=== PATIENT | male | born 1940 | race Caucasian/White ===

== ENCOUNTER → 2018-11-13 11:26 | Outpatient (CLI) | payer MEDICARE, SELFPAY ==
--- NOTE | 2018-11-13 | DI.CT.S_ITS ---
PROCEDURE: CT ABDOMEN PELVIS WO/W CON INDICATIONS: Gross hematuria TECHNIQUE: Optional 5 mm thick noncontrast images acquired from the diaphragm to the symphysis pubis. After the administration of intravenous contrast, 5 mm thick images acquired from the diaphragm to the symphysis pubis after a 10-minute delay. 2 mm thick coronal and sagittal reformats were then performed of the kidneys and ureters. For radiation dose reduction, the following was used: automated exposure control, adjustment of mA and/or kV according to patient size. COMPARISON: None. FINDINGS: Image quality: Excellent. Lung bases: Lung bases are clear. Heart size is normal. Small hiatal hernia. Urinary system: Both kidneys are normal in size, without hydronephrosis or nephrolithiasis on pre-contrast images. No perinephric fat stranding. There is normal bilateral renal enhancement. Renal calyces appear normal in morphology when filled with contrast. Opacified portions of both ureters demonstrate normal caliber. Bladder wall thickness is normal. No calcified bladder stones. Enlarged prostate. There is a small exophytic nodular contour in the right posterior aspect of the prostate. Other solid organs: Liver is normal in size and enhancement. Gallbladder contains no opaque gallstones. There are foci of calcification in the gallbladder wall. Biliary system is non dilated. Pancreas enhances normally. Spleen is normal in size and enhancement. No adrenal nodules. Peritoneum and bowel: There are scattered colonic diverticula. Bowel loops demonstrate normal wall thickness and caliber. No free fluid or air. Nodes and vessels: No retroperitoneal or mesenteric adenopathy by size criteria. Aorta and inferior vena cava are normal in size. Abdominal wall: Small fat containing umbilical hernia is noted. Pelvis: No pathologic free pelvic fluid. No inguinal hernias or adenopathy. Bones: No suspicious bony lesions. No vertebral body compression fractures. Degenerative changes in lower thoracic spine lumbar spine. IMPRESSION: 1. No renal stone or hydronephrosis. 2. Enlarged prostate. There is a small exophytic nodule in the right posterior aspect of prostate. 3. Calcification of gallbladder wall. Recommend ultrasound followup. 4. Diverticulosis without acute diverticulitis. Dictated by: Brittany Canales M.D. on 11/13/2018 at 16:17 Approved by: Brittany Canales M.D. on 11/13/2018 at 18:52
== END ==
PROVIDERS: Family Provider Physician Assistant; PCP Physician Assistant; Visit Provider Physician Assistant
DX: R31.0 Gross hematuria (principal); N40.0 Benign prostatic hyperplasia without lower urinary tract symptoms; K57.90 Diverticulosis of intestine, part unspecified, without perforation or abscess without bleeding; K42.9 Umbilical hernia without obstruction or gangrene; K82.8 Other specified diseases of gallbladder
CPT/HCPCS: 74178; Q9967

== ENCOUNTER → 2018-11-23 07:38 | Outpatient (CLI) | payer MEDICARE, SELFPAY ==
--- NOTE | 2018-11-23 | DI.US.S_ITS ---
PROCEDURE: US ABDOMEN COMPLETE INDICATIONS: GALLSTONES TECHNIQUE: Real-time scanning was performed of the abdominal and retroperitoneal organs, with image documentation. COMPARISON: [facility], CT, CT ABDOMEN PELVIS WO/W CON, 11/13/2018, 11:52. FINDINGS: Liver: Liver is diffusely increased in echogenicity. No focal hepatic abnormalities identified. Normal hepatic size. Gallbladder: Wall echo shadow associated with the gallbladder fossa. No gallbladder wall thickening or pericholecystic fluid. Negative sonographic Moura's sign. Biliary ducts: Intrahepatic bile ducts are non-dilated. Extrahepatic bile duct caliber measures 6.7 mm. Normal is 6-7 mm or less in diameter, or 10 mm or less post-cholecystectomy. Pancreas: Not well-visualized. Spleen: Spleen is normal in size and homogeneous in echotexture. Kidneys: Kidneys are normal in size and echotexture. Right kidney measures 12.1 cm long; left kidney measures 12.4 cm long. No hydronephrosis or nephrolithiasis. No solid masses. Aorta: Visualized aorta is normal in caliber at less than 3 cm. Iliacs: Proximal common iliac arteries are normal in caliber at less than 2.5 cm. IVC: Intrahepatic inferior vena cava is patent. Miscellaneous: No free abdominal fluid. IMPRESSION: 1. Increased hepatic echogenicity noted possibly related to hepatic steatosis but other sources of hepatocellular disease cannot be excluded. Recommend clinical correlation. 2. Cholelithiasis without acute cholecystitis. Dictated by: David MTZ Interpreted: Chelly Box MD on 11/23/2018 at 9:59 Approved by: Chelly Box M.D. on 11/23/2018 at 14:39
== END ==
PROVIDERS: PCP Physician Assistant; Visit Provider Physician Assistant
DX: K80.20 Calculus of gallbladder without cholecystitis without obstruction (principal)
CPT/HCPCS: 76700